=== PATIENT | female | born 1990 ===

== ENCOUNTER 2020-05-26 06:30 | Inpatient (IN) | payer OTHER ==
--- NOTE | 2020-05-26 08:34 | HP ---
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: No: Alzheimer's, CVA, Dementia, Migraine, Multiple Sclerosis, Peripheral Neuropathy, Parkinson's, Seizure, Syncope, TIA, Vertigo, Other Cardiovascular: No: AFIB, Aneurysm, Aortic Insufficiency, Aortic Stenosis, CAD, CHF, Deep Vein Thrombosis, HTN, Hyperlipdemia, [place], Mitral Insufficiency, Mitral Stenosis, Murmur, Pulmonary Hypertension, Other Pulmonary: No: Asthma, Bronchitis, Cancer, COPD, O2 Dependent, Pneumonia, Previously Intubated, Pulmonary Embolus, Pulmonary Fibrosis, Sleep Apnea, Other Gastrointestinal: No: Ascites, Cancer, Constipation, Crohn's Disease, Diverticulitis, Diverticulosis, Esophageal Varices, Gastritis, GERD, GI Bleed, Hemorrhoids, Hiatal Hernia, Inflamatory Bowel Disease, Irritable Bowel Disease, Pancreatitis, Peptic Ulcer Disease, Ulcerative Colitis, Other Hepatobiliary: No: Cirrhosis, Cholelithiasis, Cholecystitis, Choledocholithiasis, Hepatitis A, Hepatitis B, Hepatitis C, Other Renal/: No: Renal Failure, Renal Inusuff, BPH, Cancer, Hematuria, Hemodialysis, Neurogenic Bladder, Renal Calculi, UTI, Other Reproductive: No: Ectopic , Endometriosis, Fibroids, PID, Polycystic Ovary Syndrome, Postmenopausal, Other Heme/Onc: No: Anemia, B12 Deficiency, Bleeding Disorder, Cancer, Current Chemotherapy, Current Radiation Therapy, Hemochromatosis, Hypercoaguable State, Myeloproliferative Synd, Sickle Cell Disease, Sickle Cell Trait, Thrombocytopenia, Other Infectious Disease: No: AIDS, C-Diff, Herpes Zoster, HIV, MRSA, STD's, Tuberculosis, VREF, Other Psych: No: Addictions, Anxiety, Bipolar, Depression, Panic, Psychosis, Schizophrenia, Other Musculoskeletal: No: Bursitis, Chronic low back pain, Hemiparesis, Hemiplegia, Osteoarthritis, Paraplegia, Other Rheumatology: No: Fibromyalgia, Gout, Lupus, Rheumatoid Arthritis, Sarcoidosis, Vasculitis, Other ENT: No: Allergic Rhinitis, Sinusitis, Other Endocrine: No: [place]'s Disease, [place]'s Disease, Diabetes Insipidus, Diabetes Mellitus, Hyperparathyroidism, Hyperthyroidism, Hypothyroidism, Osteopenia, SIADH, Other Dermatology: No: Basal Cell, Cellulitis, Eczema, Melanoma, Psoriasis, Squamous Cell, Other - Past Surgical History Past Surgical History: No: None, AAA Repair, AICD, Amputation, Appendectomy, Arthrosocopy, AV Fistula/Graft, Bariatric Surgery, Breast Biopsy, Bypass, CABG, Carotid Endarterectomy, Cataract Removal, Cholecystectomy, Colectomy, Colonoscopy, Colostomy, Craniotomy, , Cystectomy, Hernia Repair, Hysterectomy, Ileal Conduit, Ileosotomy, Joint Replacement, Kidney Transplant, Laminectomy, Liver Transplant, Mastectomy, Nephrectomy, Oopherectomy, Orchiectomy, Permanent Pacemaker, Prostatectomy, Splenectomy, Stent, Thoracotomy, TURP, Tonsillectomy, Tubal Ligation, Upper Endoscopy, Valve Replacement, Vasectomy, Vein Stripping/Ligation Hx Myomectomy: No Hx Transabdominal Cerclage: No - Advance Directives Advance Directives: Yes: Living Will - Smoking History Have you smoked in the past 12 months: No - Alcohol/Substance Use History of Substance Use: reports: None - Social History Usual Living Arrangement: Yes: With Significant Other Do you think of yourself as: Straight/Heterosexual ADL: Independent History of Recent Travel: No Home Medications - Allergies Allergies/Adverse Reactions: Allergies Allergy/AdvReac Type Severity Reaction Status Date / Time No Known Allergies Allergy Verified 05/26/20 07:47 - Home Medications Home Medications: Ambulatory Orders Metformin HCl [Glucophage] 2 tab PO DAILY 05/26/20 Vitamins (Sjr) - 1 tab PO DAILY 05/26/20 Family Medical History Family History: Denies Review of Systems - Review of Systems Constitutional: reports: No Symptoms Eyes: reports: No Symptoms HENT: reports: No Symptoms Neck: reports: No Symptoms Cardiovascular: reports: No Symptoms Respiratory: reports: No Symptoms Gastrointestinal: reports: No Symptoms Genitourinary: reports: No Symptoms Breasts: reports: No Symptoms Reported Musculoskeletal: reports: No Symptoms Integumentary: reports: No Symptoms Neurological: reports: No Symptoms Endocrine: reports: No Symptoms Hematology/Lymphatic: reports: No Symptoms Psychiatric: reports: No Symptoms Physical Exam - Maternity Vital Signs: Vital Signs Temperature Pulse Rate 76 05/26/20 08:00 Respiratory Rate 18 05/26/20 08:00 Blood Pressure 114/71 05/26/20 08:00 O2 Sat by Pulse Oximetry (%) Constitutional: Yes: Well Nourished, No Distress, Calm Eyes: Yes: WNL, Conjunctiva Clear, EOM Intact HENT: Yes: WNL, Atraumatic, Normocephalic Neck: Yes: WNL, Supple, Trachea Midline Cardiovascular: Yes: WNL, Regular Rate and Rhythm Lungs: Clear to auscultation Breast(s): Yes: WNL - Abdominal Exam/OB Number of Fetuses: Single Presentation: Vertex Contractions: Yes Regularity: Irregular Intensity: Mild/Mod Monitor Mode: External Heart Rate Location: [facility] Category: I Accelerations: Uniform - Vaginal Exam/OB Vaginal Bleeding: No Speculum Exam: No Dilatation (cm): 1 Effacement (%): 60 Amniotic Membrane Status: Intact Amniotic Fluid: Yes: Clear Meconium: Light Presentation: Vertex/Position Station: -1 - Physical Exam Musculoskeletal: Yes: WNL Extremities: Yes: WNL Edema: Yes Integumentary: Yes: WNL Deep Tendon Reflex Grade: Normal +2 ...Motor Strength: WNL Psychiatric: Yes: WNL, Alert, Oriented Hemorrhage Risk Assessment - Risk Factors Medium Risk Factors: Yes: None High Risk Factors: Yes: None Risk Score: 1 Risk Level: Medium Risk Assessment/Plan for induction, non well controlled gdm on medications
[2020-05-26] MEDS: ELECTROLYTE-148 SOLN 1,000 ML IV SCH (08:45)
[2020-05-26 08:49] LABS: BASO % 0.7 % (0-2.0); EOS % 0.4 % (0-4.5); HEMATOCRIT 38.1 % (32.4-45.2); HEMOGLOBIN 12.7 GM/dL (10.7-15.3); LYMPH % 21.9 % (8-40); MCH 30.7 pg (25.7-33.7); MCHC 33.4 g/dl (32.0-36.0); MONO % 6.1 % (3.8-10.2); NEUT % 70.9 % (42.8-82.8); PLATELET COUNT 212 K/MM3 (134-434); RBC 4.14 M/mm3 (3.60-5.2); RDW 13.9 % (11.6-15.6); WHITE BLOOD COUNT 12.7 K/mm3 (4.0-10.0)
[2020-05-26] MEDS ORDERED: OXYTOCIN 30 UNITS in 0.9% NS 30 UNIT/500 ML INFUS.BAG IVPB ONE (08:49)
[2020-05-26 08:58] LABS: INR 0.89 (0.83-1.09); PROTHROMBIN TIME (PATIENT) 10.5 SEC (9.7-13.0)
[2020-05-26] MEDS: OXYTOCIN 30 UNITS in 0.9% NS 30 UNIT/500 ML INFUS.BAG IVPB SCH (09:00)
[2020-05-26 09:01] LABS: ACTIVATED PTT 23.5 SECONDS (25.2-36.5)
[2020-05-26 09:22] LABS: CALCIUM 9.9 mg/dL (8.5-10.1); CREATININE 0.6 mg/dL (0.55-1.3); POTASSIUM 3.9 mmol/L (3.5-5.1)
[2020-05-26 09:27] VITALS: BMI 26.6
[2020-05-26] MEDS ORDERED: FENTANYL/BUPIVACAINE/NS/PF - PCEA - 50 ML DISP.SYRIN EP ONE ×4 (09:53→22:24)
[2020-05-26] MEDS ORDERED: NALOXONE HCL 0.4 MG/ML VIAL IVPUSH PRN (10:17)
[2020-05-26] MEDS ORDERED: BUPIVACAINE HCL/PF 0.25% (2.5MG/ML) 10 ML VIAL ONE ×2 (10:19→15:09)
[2020-05-26] MEDS: FENTANYL/BUPIVACAINE/NS/PF - PCEA - 50 ML DISP.SYRIN EP SCH (10:35)
--- NOTE | 2020-05-26 14:39 | PN ---
Progress Note (short form) - Note Progress Note: 1 pm, 6 cm, 70%, -1, ballon out, uc q 3 min, continue pitocin, nst reactive
[2020-05-26] MEDS ORDERED: ACETAMINOPHEN 325 MG TABLET (FP) PO STA (18:23)
[2020-05-26] MEDS ORDERED: ACETAMINOPHEN 325 MG TABLET (FP) ONE (18:23)
--- NOTE | 2020-05-26 18:26 | PN ---
Progress Note (short form) - Note Progress Note: tachy, 8cm, -1, 70%, uc q 3 min, maternal temp 98.3, no deccel, will continue pitocin, and cynthiaeno, if tachy persist, will consider cs
[2020-05-26] MEDS ORDERED: PCA PUMP NR ONE (19:13)
--- NOTE | 2020-05-27 00:27 | PN ---
Progress Note (short form) - Note Progress Note: 11 pm 10 cm, nst reactive, pushing soon
[2020-05-27] MEDS ORDERED: METHYLERGONOVINE MALEATE 0.2 MG/1 ML AMP IM PRN (00:28)
[2020-05-27] MEDS ORDERED: BENZOCAINE 28 GM HEMORRHOIDAL OINTMENT TP PRN (00:28)
[2020-05-27] MEDS ORDERED: WITCH HAZEL 50% (TUCKS) 40 PAD/JAR PAD TP PRN (00:28)
[2020-05-27] MEDS ORDERED: BISACODYL 10 MG SUPP.RECT RC PRN (00:28)
[2020-05-27] MEDS ORDERED: BENZOCAINE 20% 57 GM BOTTLE TP PRN (00:28)
--- NOTE | 2020-05-27 00:28 | PN ---
Delivery - Delivery Vaginal Delivery: No Problems Type of Anesthesia: Epidural Episiotomy/Laceration: Right Mediolateral EBL (cc): 200 (no complications ) Delivery, Single - Stages of Labor Placenta: Yes: Spontaneous - Condition of Heavy Truck Technician/Block Inspector Present: No Gender: Female Position: Left, OA - Feeding Plan Initial Plan: Exclusive throughout hospitalization
[2020-05-27] MEDS ORDERED: OXYTOCIN 20 UNITS in 0.9% NS 20 UNIT/1,000 ML INFUS.BAG IV SCH (00:30)
[2020-05-27] MEDS ORDERED: OXYTOCIN 20 UNITS in 0.9% NS 20 UNIT/1,000 ML INFUS.BAG IV ONE (01:43)
[2020-05-27] MEDS: ACETAMINOPHEN 325 MG TABLET (FP) PO PRN ×3 (08:31→22:33)
[2020-05-27] MEDS: PRENATAL VITAMINS W/ FOLIC ACID TABLET (FP) PO SCH (09:34)
--- NOTE | 2020-05-27 15:35 | PN ---
Post Progress Note Post Day: 1 Type of Delivery: Vital Signs: Vital Signs Temperature 98.9 F 05/27/20 09:25 Pulse Rate 82 05/27/20 09:25 Respiratory Rate 20 05/27/20 09:25 Blood Pressure 111/65 05/27/20 09:25 O2 Sat by Pulse Oximetry (%) 97 05/27/20 09:25 Breast Exam: Yes: Soft Uterus: Yes: Fundus Firm, Fundus below umbilicus Abdomen/GI: Yes: Abdomen soft, Passing flatus, Tolerating PO Lochia: Yes: Serosa Lochia, amount: Small Extremities: Yes: Calves non-tender Perineum: Yes: Intact Activity: Ambulating (dc pt home on friday ) - Labs Labs: CBC WBC 12.7 K/mm3 (4.0-10.0) H 05/26/20 08:25 RBC 4.14 M/mm3 (3.60-5.2) 05/26/20 08:25 Hgb 12.7 GM/dL (10.7-15.3) 05/26/20 08:25 Hct 38.1 % (32.4-45.2) 05/26/20 08:25 MCV 92.0 fl (80-96) 05/26/20 08:25 MCH 30.7 pg (25.7-33.7) 05/26/20 08:25 MCHC 33.4 g/dl (32.0-36.0) 05/26/20 08:25 RDW 13.9 % (11.6-15.6) 05/26/20 08:25 Plt Count 212 K/MM3 (134-434) 05/26/20 08:25 MPV 9.0 fl (7.5-11.1) 05/26/20 08:25 Absolute Neuts (auto) 9.0 K/mm3 (1.5-8.0) H 05/26/20 08:25 Neutrophils % 70.9 % (42.8-82.8) 05/26/20 08:25 Lymphocytes % 21.9 % (8-40) 05/26/20 08:25 Monocytes % 6.1 % (3.8-10.2) 05/26/20 08:25 Eosinophils % 0.4 % (0-4.5) 05/26/20 08:25 Basophils % 0.7 % (0-2.0) 05/26/20 08:25 Nucleated RBC % 0 % (0-0) 05/26/20 08:25
--- NOTE | 2020-05-27 15:36 | DS ---
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 Signs: Vital Signs Temperature 98.9 F 05/27/20 09:25 Pulse Rate 82 05/27/20 09:25 Respiratory Rate 20 05/27/20 09:25 Blood Pressure 111/65 05/27/20 09:25 O2 Sat by Pulse Oximetry (%) 97 05/27/20 09:25 Constitutional: Yes: Well Nourished, No Distress, Calm Eyes: Yes: WNL, Conjunctiva Clear, EOM Intact HENT: Yes: WNL, Atraumatic, Normocephalic Neck: Yes: WNL, Supple, Trachea Midline Cardiovascular: Yes: WNL, Regular Rate and Rhythm Respiratory: Yes: WNL, Regular, CTA Bilaterally Gastrointestinal: Yes: WNL, Normal Bowel Sounds, Soft ...Rectal Exam: Yes: WNL Renal/: Yes: WNL Pelvis: Yes: WNL External Genitalia: Yes: Normal Internal Exam Deferred: Yes Vaginal Exam: Yes: Normal Cervix: Yes: Normal Uterus: Yes: Normal Adnexa: Normal: Bilateral ....Post : Yes: Uterus firm, Uterus non-tender Breast(s): Yes: WNL Musculoskeletal: Yes: WNL Extremities: Yes: WNL Edema: Yes Edema: LUE: 1+, RUE: 1+, LLE: 1+, RLE: 1+ Integumentary: Yes: WNL Wound/Incision: Yes: Clean/Dry, Well Approximated Neurological: Yes: WNL, Alert, Oriented ...Motor Strength: WNL Psychiatric: Yes: WNL, Alert, Oriented Labs: CBC, BMP 05/26/20 08:25 05/26/20 08:25 Delivery - Delivery Vaginal Delivery: No Problems Type of Anesthesia: Epidural Episiotomy/Laceration: Right Mediolateral EBL (cc): 200 (no complications ) Delivery, Single - Stages of Labor Date 1st Stage Initiatied: 05/26/20 Time 1st Stage Initiated: 08:15 Date 2nd Stage Initiated: 05/26/20 Time 2nd Stage Initiated: 23:10 Date of Delivery: 05/27/20 Time of Delivery: 00:01 Time Placenta Delivered: 00:05 Placenta: Yes: Spontaneous - Condition of Infant Fitness Centre Manager/Church Organist Present: No Infant Gender: Female Weight: 3.118 kg Position: Left, OA Total Hours ROM (Hrs/Mins): 16/14 - 1 Minute Total Score: 9 5 Minutes Total Score: 9 - [place] Feeding Plan Initial Plan: Exclusive throughout hospitalization Discharge Summary Problems reviewed: Yes Reason For Visit: LABOR INDUCTION Procedures: Principal: Hospital Course: uneventful Condition: Good - Instructions Diet, Activity, Other Instructions: Physical activity Resume your normal everyday activity as tolerated no heavy lifting or exercise until seen by your surgeon. You may walk unlimited bart of and climb stairs. You may resume driving the car when you feel safe and comfortable behind the wheel. No sexual activity as instructed. Wound care If you have a bandage, leave it on, and keep dry for 48-72 hours. After that time discard the outer bandage. If they are tapes on the skin under the out of bandage leave them in place. They will peel off in the next 7 to 10 days. Do Not Peel them off. You may shower the day after surgery. If there are tapes present on the skin, you may shower over them. Diet There are no dietary restrictions. Eat healthy, high-fiber foods. Drink 6 to 8 glasses of liquid each day. This will assist in keeping your bowels are regular. Pain management You may take Tylenol or acetaminophen or Ibuprofen (for example, Motrin, Advil etc.) from my pain prescription medication is ordered should be taken as prescribed for moderate to severe pain. Call MD for any of the following: call for 6 weeks appointment Severe pain not relieved by medication Fever of 101 or higher Excessive bleeding or drainage on dressing Inability to urinate Disposition: HOME - Home Medications Comprehensive Discharge Medication List: Ambulatory Orders Glyburide 10 tab PO DAILY 05/26/20 Vitamins (Sjr) - 1 tab PO DAILY 05/26/20 Prescription Drug Monitoring Program (I-STOP) results: I-STOP reviewed and no issues identified
[2020-05-27] MEDS: oxyCODONE HCL 5 MG TABLET PO PRN ×2 (16:06→22:33)
[2020-05-28] MEDS: ACETAMINOPHEN 325 MG TABLET (FP) PO PRN ×2 (08:36→20:17)
[2020-05-28] MEDS: oxyCODONE HCL 5 MG TABLET PO PRN ×2 (08:37→20:16)
[2020-05-28 09:30] LABS: BASO % 0.3 % (0-2.0); EOS % 0.4 % (0-4.5); HEMATOCRIT 34.2 % (32.4-45.2); HEMOGLOBIN 11.1 GM/dL (10.7-15.3); LYMPH % 10.4 % (8-40); MCH 30.2 pg (25.7-33.7); MCHC 32.5 g/dl (32.0-36.0); MEAN PLT VOLUME 8.9 fl (7.5-11.1); MONO % 3.5 % (3.8-10.2); NEUT % 85.4 % (42.8-82.8); PLATELET COUNT 236 K/MM3 (134-434); RBC 3.68 M/mm3 (3.60-5.2); RDW 14.3 % (11.6-15.6); WHITE BLOOD COUNT 21.2 K/mm3 (4.0-10.0)
[2020-05-28] MEDS: PRENATAL VITAMINS W/ FOLIC ACID TABLET (FP) PO SCH (10:18)
[2020-05-28] MEDS: OXYTOCIN 30 UNITS in 0.9% NS 30 UNIT/500 ML INFUS.BAG IVPB SCH ×2 (10:20→10:21)
[2020-05-28] MEDS: ELECTROLYTE-148 SOLN 1,000 ML IV SCH (10:21)
[2020-05-28] MEDS: FENTANYL/BUPIVACAINE/NS/PF - PCEA - 50 ML DISP.SYRIN EP SCH ×2 (10:22→12:59)
[2020-05-28 10:46] LABS: ANISOCYTOSIS 1+; MACROCYTOSIS 0; PLATELET ESTIMATE NORMAL
[2020-05-28] MEDS ORDERED: HYDROCORTISONE 2.5% TOPICAL CREAM 30 GM TUBE TP PRN (17:03)
[2020-05-28] MEDS: SENNOSIDES/DOCUSATE COMBO (SENNA PLUS) TABLET (UD) PO PRN (20:17)
[2020-05-28] MEDS ORDERED: ACETAMINOPHEN 325 MG TABLET (FP) PO PRN (20:26)
--- NOTE | 2020-05-28 20:26 | PN ---
Progress Note (short form) - Note Progress Note: Laborist note: asked to see patient for elevated temperature and increased WBC's; no dysuria patient without complains except for abdominal and back rash since yesterday for which she is getting cream abdomen soft, non tender; no suprapubic tenderness lochia normal I/P: repeat cbc Tylenol 650mg for temp
[2020-05-28 21:03] LABS: BASO % 0.2 % (0-2.0); EOS % 0.4 % (0-4.5); HEMATOCRIT 32.7 % (32.4-45.2); LYMPH % 11.8 % (8-40); MCH 31.2 pg (25.7-33.7); MCHC 33.6 g/dl (32.0-36.0); MEAN CELL VOLUME 92.6 fl (80-96); MEAN PLT VOLUME 8.8 fl (7.5-11.1); MONO % 5.2 % (3.8-10.2); NEUT % 82.4 % (42.8-82.8); PLATELET COUNT 244 K/MM3 (134-434); RBC 3.53 M/mm3 (3.60-5.2); WHITE BLOOD COUNT 17.5 K/mm3 (4.0-10.0)
[2020-05-28] MEDS ORDERED: diphenhydrAMINE HCL 25 MG CAPSULE (FP) PO ONE (22:00)
[2020-05-29] MEDS: ACETAMINOPHEN 325 MG TABLET (FP) PO PRN ×3 (10:18→20:42)
[2020-05-29] MEDS: PRENATAL VITAMINS W/ FOLIC ACID TABLET (FP) PO SCH (10:21)
--- NOTE | 2020-05-29 13:06 | PN ---
Post Progress Note Post Day: 3 Type of Delivery: Vital Signs: Vital Signs Temperature 98.3 F 05/29/20 09:00 Pulse Rate 102 H 05/29/20 09:00 Respiratory Rate 20 05/29/20 09:00 Blood Pressure 110/70 05/29/20 09:00 O2 Sat by Pulse Oximetry (%) 99 05/27/20 18:12 Breast Exam: Yes: Soft Uterus: Yes: Fundus Firm, Fundus below umbilicus, Non-tender Abdomen/GI: Yes: Abdomen soft, Tolerating PO Lochia: Yes: Rubra Lochia, amount: Small Extremities: Yes: Calves non-tender Activity: Ambulating - Labs Labs: CBC WBC 17.5 K/mm3 (4.0-10.0) H 05/28/20 20:45 RBC 3.53 M/mm3 (3.60-5.2) L 05/28/20 20:45 Hgb 11.0 GM/dL (10.7-15.3) 05/28/20 20:45 Hct 32.7 % (32.4-45.2) 05/28/20 20:45 MCV 92.6 fl (80-96) 05/28/20 20:45 MCH 31.2 pg (25.7-33.7) 05/28/20 20:45 MCHC 33.6 g/dl (32.0-36.0) 05/28/20 20:45 RDW 14.0 % (11.6-15.6) 05/28/20 20:45 Plt Count 244 K/MM3 (134-434) 05/28/20 20:45 MPV 8.8 fl (7.5-11.1) 05/28/20 20:45 Absolute Neuts (auto) 14.4 K/mm3 (1.5-8.0) H 05/28/20 20:45 Neutrophils % 82.4 % (42.8-82.8) 05/28/20 20:45 Neutrophils % (Manual) 85.4 % (42.8-82.8) H 05/28/20 09:00 Band Neutrophils % 0.0 % 05/28/20 09:00 Lymphocytes % 11.8 % (8-40) 05/28/20 20:45 Lymphocytes % (Manual) 7.3 % (8-40) L 05/28/20 09:00 Monocytes % 5.2 % (3.8-10.2) 05/28/20 20:45 Monocytes % (Manual) 5 % (3.8-10.2) 05/28/20 09:00 Eosinophils % 0.4 % (0-4.5) 05/28/20 20:45 Eosinophils % (Manual) 1.1 % (0-4.5) 05/28/20 09:00 Basophils % 0.2 % (0-2.0) 05/28/20 20:45 Basophils % (Manual) 1.0 % (0-2.0) 05/28/20 09:00 Myelocytes % (Man) 0 % (0-2) 05/28/20 09:00 Promyelocytes % (Man) 0 % (0-2) 05/28/20 09:00 Blast Cells % (Manual) 0 % (0-0) 05/28/20 09:00 Nucleated RBC % 0 % (0-0) 05/28/20 20:45 Metamyelocytes 0 % (0-2) 05/28/20 09:00 Hypochromia 0 05/28/20 09:00 Platelet Estimate Normal 05/28/20 09:00 Polychromasia 0 05/28/20 09:00 Poikilocytosis 0 05/28/20 09:00 Anisocytosis 1+ 05/28/20 09:00 Microcytosis 1+ 05/28/20 09:00 Macrocytosis 0 05/28/20 09:00 Assessment/Plan S/P , ppd # 2, with fever. Presently no complains and afebrile. Temperature spiked to 101 at 8.00pm on 05/28/20 Urinalysis and urine c/s requested Will observe 24 hours for possible pyrexia Continue management Addendum Patient is afebrile and stable Discharge on 05/30/20.
[2020-05-29] MEDS: IBUPROFEN 600 MG TABLET (FP) PO PRN ×2 (16:08→20:42)
[2020-05-29 20:38] LABS: URINE APPEARANCE Slightly Cloudy; URINE BILIRUBIN Negative (NEGATIVE); URINE COLOR Yellow; URINE GLUCOSE (UA) Negative (NEGATIVE); URINE KETONE Negative (NEGATIVE); URINE LEUK ESTERASE 1+ (NEGATIVE); URINE NITRITE Negative (NEGATIVE); URINE PROTEIN Negative (NEGATIVE); URINE UROBILINOGEN 0.2 mg/dL (0.2-1.0)
[2020-05-29] MEDS: SENNOSIDES/DOCUSATE COMBO (SENNA PLUS) TABLET (UD) PO PRN (20:42)
[2020-05-30] MEDS: ACETAMINOPHEN 325 MG TABLET (FP) PO PRN (09:02)
[2020-05-30] MEDS: IBUPROFEN 600 MG TABLET (FP) PO PRN (09:03)
[2020-05-30] MEDS: PRENATAL VITAMINS W/ FOLIC ACID TABLET (FP) PO SCH (09:04)
[2020-05-30 10:40] VITALS: BP 113/75; PULSE 92; TEMP 98.4
== END 2020-05-30 13:30 | disposition home or self-care (01) | DRG 560 ==
LOC: JLDR 06:30 → J3W 05-27 02:18
PROVIDERS: ADMIT Obstetrics & Gynecology; ATTEND Obstetrics & Gynecology
PROC: 0U7C7ZZ Dilation of Cervix, Via Natural or Artificial Opening (ICD-10-PCS; principal; 2020-05-26)
PROC: 3E033VJ Introduction of Other Hormone into Peripheral Vein, Percutaneous Approach (ICD-10-PCS; 2020-05-26)
PROC: 0W8NXZZ Division of Female Perineum, External Approach (ICD-10-PCS; 2020-05-27)
PROC: 10E0XZZ Delivery of Products of Conception, External Approach (ICD-10-PCS; 2020-05-27)
DX: O24.425 Gestational diabetes mellitus in childbirth, controlled by oral hypoglycemic drugs (principal); Z3A.39 39 weeks gestation of pregnancy; Z37.0 Single live birth; O86.4 Pyrexia of unknown origin following delivery; R21 Rash and other nonspecific skin eruption
CPT/HCPCS: 36415; 59409; 80048; 81003; 82962; 85025; 85610; 85730; 86780; 86850; 86900; 86901; 87086; 87186; 87389

== ENCOUNTER 2024-11-27 09:16 | Inpatient (IN) | payer OTHER ==
[2024-11-27 10:32] VITALS: BMI 27.9
[2024-11-27 10:42] LABS: INR 0.92 (0.83-1.09); PROTHROMBIN TIME (PATIENT) 10.1 SEC (9.7-13.0)
[2024-11-27 10:45] LABS: BASO % 0.5 % (0-2.0); EOS % 0.7 % (0-4.5); HEMATOCRIT 37.6 % (32.4-45.2); HEMOGLOBIN 12.8 GM/dL (10.7-15.3); LYMPH % 13.5 % (8-40); MCH 31.8 pg (25.7-33.7); MCHC 34.1 g/dl (32.0-36.0); MEAN CELL VOLUME 93.2 fl (80-96); MEAN PLT VOLUME 9.6 fl (7.5-11.1); MONO % 4.7 % (3.8-10.2); NEUT % 80.6 % (42.8-82.8); PLATELET COUNT 157 10^3/uL (134-434); RBC 4.04 M/mm3 (3.60-5.2); RDW 13.8 % (11.6-15.6); WHITE BLOOD COUNT 11.8 K/mm3 (4.0-10.0)
[2024-11-27] MEDS: ELECTROLYTE-148 SOLN 1,000 ML IV SCH ×2 (10:45→15:00)
[2024-11-27 10:54] LABS: POTASSIUM 3.7 mmol/L (3.5-5.1)
[2024-11-27 10:56] LABS: ALBUMIN 2.4 g/dl (3.4-5.0); BLOOD UREA NITROGEN 10.8 mg/dL (7-18); CALCIUM 9.1 mg/dL (8.5-10.1)
[2024-11-27 10:59] LABS: CREATININE 0.6 mg/dL (0.55-1.3)
[2024-11-27 11:01] LABS: BILIRUBIN,TOTAL 0.3 mg/dL (0.2-1); TOT PROT 5.3 g/dl (6.4-8.2)
[2024-11-27 11:51] LABS: HIV INTERPRETATION NEGATIVE (NEGATIVE)
[2024-11-27] MEDS ORDERED: OXYTOCIN 30 UNITS in 0.9% NS 30 UNIT/500 ML INFUS.BAG IVPB ONE (13:44)
[2024-11-27] MEDS: OXYTOCIN 30 UNITS in 0.9% NS 30 UNIT/500 ML INFUS.BAG IVPB SCH (14:00)
[2024-11-27] MEDS ORDERED: NALOXONE HCL 0.4 MG/ML VIAL IVPUSH PRN (14:47)
[2024-11-27] MEDS ORDERED: FENTANYL CITRATE/PF 50 MCG/ML VIAL ONE (14:51)
[2024-11-27] MEDS ORDERED: FENTANYL/BUPIVACAINE/NS/PF - PCEA - 50 ML DISP.SYRIN EP ONE (14:54)
[2024-11-27] MEDS: FENTANYL/BUPIVACAINE/NS/PF - PCEA - 50 ML DISP.SYRIN EP SCH (15:05)
[2024-11-27] MEDS ORDERED: LIDOCAINE HCL 1% PRESERVATIVE FREE - 30ML VIAL ONE (18:41)
[2024-11-27] MEDS ORDERED: OXYTOCIN 20 UNITS in 0.9% NS 20 UNIT/1,000 ML INFUS.BAG IV ONE (18:42)
[2024-11-27] MEDS: OXYTOCIN 20 UNITS in 0.9% NS 20 UNIT/1,000 ML INFUS.BAG IV SCH (19:37)
[2024-11-27] MEDS ORDERED: BISACODYL 10 MG SUPP.RECT RC PRN (19:50)
[2024-11-27] MEDS ORDERED: BENZOCAINE 20% 57 GM BOTTLE TP PRN (19:50)
[2024-11-27] MEDS ORDERED: BENZOCAINE 28 GM HEMORRHOIDAL OINTMENT TP PRN (19:50)
[2024-11-27] MEDS ORDERED: oxyCODONE HCL 5 MG TABLET PO PRN (19:50)
[2024-11-27] MEDS ORDERED: WITCH HAZEL 50% (TUCKS) 40 PAD/JAR PAD TP PRN (19:50)
[2024-11-27] MEDS ORDERED: METHYLERGONOVINE MALEATE 0.2 MG/1 ML AMP IM PRN (19:50)
[2024-11-27] MEDS: IBUPROFEN 600 MG TABLET (FP) PO PRN (22:34)
[2024-11-28 08:12] LABS: BASO % 0.5 % (0-2.0); EOS % 0.5 % (0-4.5); HEMATOCRIT 40.3 % (32.4-45.2); HEMOGLOBIN 12.9 GM/dL (10.7-15.3); LYMPH % 11.7 % (8-40); MCH 30.8 pg (25.7-33.7); MCHC 31.9 g/dl (32.0-36.0); MEAN CELL VOLUME 96.6 fl (80-96); MEAN PLT VOLUME 9.5 fl (7.5-11.1); MONO % 5.7 % (3.8-10.2); NEUT % 81.6 % (42.8-82.8); PLATELET COUNT 164 10^3/uL (134-434); RBC 4.17 M/mm3 (3.60-5.2); WHITE BLOOD COUNT 18.1 K/mm3 (4.0-10.0)
[2024-11-28] MEDS: FERROUS SO4 325 MG TABLET (FP) PO SCH (09:13)
[2024-11-28] MEDS: ACETAMINOPHEN 325 MG TABLET (FP) PO PRN (09:13)
[2024-11-28] MEDS: PRENATAL VITAMINS W/ FOLIC ACID TABLET (FP) PO SCH (09:13)
[2024-11-28] MEDS ORDERED: diphenhydrAMINE HCL 25 MG CAPSULE (FP) PO PRN (18:14)
[2024-11-28] MEDS: SENNOSIDES/DOCUSATE COMBO (SENNA PLUS) TABLET (UD) PO PRN (20:02)
[2024-11-28] MEDS ORDERED: SENNOSIDES/DOCUSATE COMBO (SENNA PLUS) TABLET (UD) PO PRN (22:00)
[2024-11-28 22:38] VITALS: PULSE 87
[2024-11-29 11:11] VITALS: BP 119/74; RESP 19; TEMP 98.1
[2024-11-30 12:38] LABS: POC NITRAZINE POS
== END 2024-11-29 13:25 | disposition home or self-care (01) | DRG 560 ==
LOC: JLDR 09:16 → J3W 22:32
PROVIDERS: ADMIT Obstetrics & Gynecology; ATTEND Obstetrics & Gynecology
PROC: 10E0XZZ Delivery of Products of Conception, External Approach (ICD-10-PCS; principal; 2024-11-27)
PROC: 0W8NXZZ Division of Female Perineum, External Approach (ICD-10-PCS; 2024-11-27)
DX: O80 Encounter for full-term uncomplicated delivery (principal); Z3A.37 37 weeks gestation of pregnancy; Z37.0 Single live birth
CPT/HCPCS: 36415; 59409; 80053; 83986-QW; 85025; 85610; 85730; 86780; 86850; 86870; 86880; 86900; 86901; 86902; 87389